=== PATIENT | male | born 1980 | race Caucasian/White ===

== ENCOUNTER 2017-02-26 19:19 | Emergency (ER) | payer OTHER ==
[2017-02-26 21:38] LABS: HEMOGLOBIN 12.6 gm/dl (14.0-17.5); RED BLOOD COUNT 4.39 M/UL (4.20-5.50); WHITE BLOOD COUNT 13.2 K/UL (4.5-11.0)
[2017-02-26 21:54] LABS: BUN/CREATININE RATIO 17 (0-10)
[2017-02-27 05:33] LABS: HEMOGLOBIN 11.9 gm/dl (14.0-17.5); RED BLOOD COUNT 4.18 M/UL (4.20-5.50)
[2017-02-27 05:34] LABS: WHITE BLOOD COUNT 17.7 K/UL (4.5-11.0)
[2017-02-27 05:52] LABS: BUN/CREATININE RATIO 20 (0-10)
== END 2017-02-27 16:39 | disposition home or self-care (01) ==
LOC: ER1 19:19 → ZEROF 23:00
PROVIDERS: Emergency Medicine; Internal Medicine
DX: J10.1 Influenza due to other identified influenza virus with other respiratory manifestations (principal); J18.9 Pneumonia, unspecified organism; E11.65 Type 2 diabetes mellitus with hyperglycemia; A41.9 Sepsis, unspecified organism; I10 Essential (primary) hypertension; F17.200 Nicotine dependence, unspecified, uncomplicated; Z88.0 Allergy status to penicillin; Z88.1 Allergy status to other antibiotic agents; Z79.84 Long term (current) use of oral hypoglycemic drugs; Z79.899 Other long term (current) drug therapy
CPT/HCPCS: 36415; 71020; 80053; 80307; 81001; 82550; 82553; 82962; 83605; 83735; 83874; 83880; 84100; 84439; 84443; 84484; 85025; 87040; 93005; 94640; 94664; 96361; 96372; 96374; 96375; 99285; J0456; J0696; J1200; J1630; J1650; J1815; J2060; J2185; J2270; J3370; J7030; J7050